=== PATIENT | male | born 1960 | race Caucasian/White ===

== ENCOUNTER 2017-09-20 12:26 | Emergency (ER) | payer OTHER ==
[~2017-09-20] VITALS: Ht 175.3 cm; Wt 105.4 kg
[~2017-09-20 12:26] MED LIST: AMLO5TAB2; ESZO1TAB3; GABA300C5 PO; LISI-515
[2017-09-20 12:37] VITALS: BP 146/67; PULSE 66; RESP 16; TEMP 98.6; O2SAT 96
[2017-09-20] MEDS ORDERED: AMBI5TAB PO (12:52)
[2017-09-20] MEDS ORDERED: LIPI10TA PO (12:52)
[2017-09-20] MEDS ORDERED: BLOOD PRESSURE MED (12:52)
[2017-09-20] MEDS ORDERED: TERA1CAP3 PO (12:52)
[2017-09-20 12:55] LABS: BILIRUBIN, URINE NEG (NEG); BLOOD, URINE TRACE (NEG); GLUCOSE,URINE NEG (NEG); KETONE, URINE NEG (NEG); NITRITE,URINE NEG (NEG); PH, URINE 5.5 (5.0-8.5); URINE COLOR YELLOW (YELLW/STRAW); URINE LEUKOCYTE ESTERASE NEG (NEG)
[2017-09-20 13:03] LABS: RBC, URINE 0-3 /hpf (0-3); SQUAMOUS EPITHELIAL CELL URINE 0-5 /hpf (0-5)
--- NOTE | 2017-09-20 13:04 | PD ---
HPI Chief Complaint: Flank/Kidney Pain Time Seen by Provider: 12:43 Travel History International Travel<30 days: No Contact w/Intl Traveler<30days: No Traveled to known affect area: No History of Present Illness HPI 57yo M with PMH of nephrolithiasis, back surgery with neurostimulator here with c/o back pain radiating to bilateral lower abdomen. Said it is sharp, intermittent and feels like when he last got his kidney stones. Said it started last week but worst in the last 2 days. Said he went to his primary care and got ultrasound of kidney but does not know exactly what it shows, maybe fluid. +Nausea. +Dysuria. +Difficulty urinating. Denies any fever, chest pain, sob, vomiting, testicular pain, penile rash or discharge, fall, focal weakness or numbness. PFSH Past Medical History Arthritis: No Blood Disorders: No (N) Heart Rhythm Problems: No Cancer: No Cardiovascular Problems: Yes (htn on meds) High Cholesterol: Yes Chest Pain: No Congestive Heart Failure: No Cerebrovascular Accident: No Diabetes: No Diminished Hearing: No Diverticulitis: Yes Endocrine: No Gastrointestinal Disorders: Yes (Reflux) GERD: Yes Genitourinary: Yes (Prostatitis) Headaches: No Hepatitis: No Hiatal Hernia: No Hypertension: Yes Immune Disorder: No Kidney Stones: Yes Musculoskeletal: Yes (Chronic back pain ) Neurologic: No Psychiatric: No Reproductive: No Respiratory: No Myocardial Infarction: No Seizures: No Sleep Apnea: Yes Thyroid Disease: No Ulcer: No Tetanus Vaccination: < 5 Years Influenza Vaccination: Yes Past Surgical History Abdominal Surgery: Yes (APPENDECTOMY) AICD: No Appendectomy: Yes Body Medical Devices: Orthopedic hardware, teeth implants Cardiac Surgery: No Ear Surgery: No Endocrine Surgery: No Eye Surgery: No Genitourinary Surgery: No Neurologic Surgery: Yes (LUMBAR LAMINECTOMY WITH FUSION) Oral Surgery: Yes (Teeth implants) Pacemaker: No Thoracic Surgery: No Other Surgery: Yes (Lipomas removed, muscle bx, SPINAL CORE STIMULATOR) Family History Family Hypercholesterolemia: Yes Social History Alcohol Use: No Tobacco Use: No Substance Use: No Allergies-Medications (Allergen,Severity, Reaction): Coded Allergies: oyster extract (Unverified Allergy, Severe, itching, 09/20/17) rosuvastatin (Unverified Allergy, Severe, MUSCLE CRAMPS, 09/20/17) enalaprilat (Unverified Allergy, Intermediate, 09/20/17) metoprolol (Unverified Allergy, Unknown, 09/20/17) valsartan (Unverified Allergy, Unknown, 09/20/17) Reported Meds & Prescriptions Reported Meds & Active Scripts Active Reported [Blood Pressure Med] Ambien (Zolpidem Tartrate) 5 Mg Tab Unknown Dose PO HS PRN Terazosin (Terazosin HCl) 1 Mg Cap Unknown Dose PO HS Lipitor (Atorvastatin Calcium) 10 Mg Tab Unknown Dose PO HS Review of Systems Except as stated in HPI: all other systems reviewed are Neg Physical Exam Narrative GENERAL: 57yo M in mild distress. SKIN: Focused skin assessment warm/dry. HEAD: Atraumatic. Normocephalic. EYES: Pupils equal and round. No scleral icterus. No injection or drainage. ENT: No nasal bleeding or discharge. Mucous membranes pink and moist. NECK: Trachea midline. No JVD. CARDIOVASCULAR: Regular rate and rhythm. No murmur appreciated. RESPIRATORY: No accessory muscle use. Clear to auscultation. Breath sounds equal bilaterally. GASTROINTESTINAL: Abdomen soft, non-tender, nondistended. BACK: Mild lower back ttp bilaterally. +Midline scar but not ttp. No edema. No CVA tenderness bilaterally. MUSCULOSKELETAL: No obvious deformities. No clubbing. No cyanosis. No edema. NEUROLOGICAL: Awake and alert. No obvious cranial nerve deficits. Motor grossly within normal limits. Normal speech. PSYCHIATRIC: Appropriate mood and affect; insight and judgment normal. Data Data Last Documented VS Vital Signs Date Time Temp Pulse Resp B/P (MAP) Pulse Ox O2 Delivery O2 Flow Rate FiO2 09/20/17 12:37 98.6 66 16 146/67 (93) 96 Orders Orders Urinalysis - C+S If Indicated (09/20/17 12:40) Basic Metabolic Panel (Bmp) (09/20/17 13:04) Complete Blood Count With Diff (09/20/17 13:04) Ct Abd/Pel W/O Iv Contrast (09/20/17 13:04) Ketorolac Inj (Toradol Inj) (09/20/17 13:15) Ondansetron Odt (Zofran Odt) (09/20/17 13:15) Labs Laboratory Tests Test 09/20/17 12:50 09/20/17 13:45 Urine Collection Type CLEAN CATCH Urine Color YELLOW Urine Turbidity CLEAR Urine pH 5.5 Urine Specific [place] 1.015 Urine Protein NEG mg/dL Urine Glucose (UA) NEG mg/dL Urine Ketones NEG mg/dL Urine Occult Blood TRACE Urine Nitrite NEG Urine Bilirubin NEG Urine Urobilinogen 0.2 MG/DL Urine Leukocyte Esterase NEG Urine RBC 0-3 /hpf Urine Squamous Epithelial Cells 0-5 /hpf Microscopic Urinalysis Comment CULT NOT INDICATED Urine Collection Time 12:50 White Blood Count 10.1 TH/MM3 Red Blood Count 4.52 MIL/MM3 Hemoglobin 13.7 GM/DL Hematocrit 41.2 % Mean Corpuscular Volume 91.1 FL Mean Corpuscular Hemoglobin 30.3 PG Mean Corpuscular Hemoglobin Concent 33.3 % Red Cell Distribution Width 13.1 % Platelet Count 280 TH/MM3 Mean Platelet Volume 7.0 FL Neutrophils (%) (Auto) 79.6 % Lymphocytes (%) (Auto) 13.7 % Monocytes (%) (Auto) 4.9 % Eosinophils (%) (Auto) 1.3 % Basophils (%) (Auto) 0.5 % Neutrophils # (Auto) 8.0 TH/MM3 Lymphocytes # (Auto) 1.4 TH/MM3 Monocytes # (Auto) 0.5 TH/MM3 Eosinophils # (Auto) 0.1 TH/MM3 Basophils # (Auto) 0.1 TH/MM3 CBC Comment DIFF FINAL Differential Comment Blood Urea Nitrogen 18 MG/DL Creatinine 1.20 MG/DL Random Glucose 122 MG/DL Calcium Level 8.9 MG/DL Sodium Level 139 MEQ/L Potassium Level 4.7 MEQ/L Chloride Level 107 MEQ/L Carbon Dioxide Level 28.2 MEQ/L Anion Gap 4 MEQ/L Estimat Glomerular Filtration Rate 62 ML/MIN [facility] Medical Decision Making Medical Screen Exam Complete: Yes Emergency Medical Condition: Yes Differential Diagnosis Nephrolithiasis vs. pyelonephritis vs. UTI Narrative Course 57yo M with back pain radiating towards abdomen. Labs reviewed, no leukocytosis. H/H normal. BMP unremarkable. UA negative for blood or leukocyte. CT a/p showed mild perinephric stranding in right kidney without stone or obstruction. Left kidney showed moderate perinephric stranding. No obstructing stone. No inflammatory changes in the abdomen. Pt reevaluated at bedside and pain and nausea has resolved after medications. Pt feels better. Pt is well appearing but since he has urinary complaints and perinephric stranding in kidneys, will cover with antibiotics. Return precautions given. Diagnosis Primary Impression: Back pain Qualified Codes: M54.5 - Low back pain Patient Instructions: General Instructions Departure Forms: Tests/Procedures Additional Instructions: Please follow up with your primary care physician in 2-3 days. Return to the ED if symptoms worsen. Med/Other Pt SpecificInfo: Prescription(s) given Scripts Acetaminophen (Tylenol) 325 Mg Tab 650 MG PO Q6H Y for PAIN SCALE 1 TO 4, #20 TAB 0 Refills Prov: Layla Santoyo DO 09/20/17 Ondansetron Odt (Zofran Odt) 4 Mg Tab 4 MG SL Q12HR Y for Nausea/Vomiting, #6 TAB 0 Refills Prov: Layla Santoyo DO 09/20/17 Sulfamethoxazole-Trimethoprim (Bactrim DS) 800-160 Mg Tab 1 TAB PO BID for Infection, #14 TAB 0 Refills Prov: Layla Santoyo DO 09/20/17 Disposition: 01 DISCHARGE HOME Condition: Stable Layla Santoyo DO September 20, 2017 13:04
[2017-09-20] MEDS ORDERED: KETOROLAC TROMETHAMINE 30 MG/ML (IVP) VIAL IVP ONE (13:15)
[2017-09-20] MEDS ORDERED: ONDANSETRON ODT 4 MG TAB PO ONE (13:15)
[2017-09-20 13:58] LABS: BASOPHIL # 0.1 TH/MM3 (0-0.2); BASOPHIL % 0.5 % (0.0-2.0); EOSINOPHIL # 0.1 TH/MM3 (0-0.4); EOSINOPHIL % 1.3 % (0.0-4.0); HEMATOCRIT 41.2 % (39.0-51.0); HEMOGLOBIN 13.7 GM/DL (13.0-17.0); LYMPH % 13.7 % (9.0-44.0); LYMPHOCYTE # 1.4 TH/MM3 (1.0-4.8); MEAN CELL VOLUME 91.1 FL (80.0-100.0); MEAN CORPUSCULAR HEMOGLOBIN 30.3 PG (27.0-34.0); MEAN CORPUSCULAR HGB CONC 33.3 % (32.0-36.0); MONO % 4.9 % (0.0-8.0); MONOCYTE # 0.5 TH/MM3 (0-0.9); NEUT % 79.6 % (16.0-70.0); PLATELET COUNT 280 TH/MM3 (150-450); RED BLOOD COUNT 4.52 MIL/MM3 (4.50-5.90); RED CELL DISTRIBUTION WIDTH 13.1 % (11.6-17.2); WHITE BLOOD COUNT 10.1 TH/MM3 (4.0-11.0)
--- NOTE | 2017-09-20 14:13 | RADRPT ---
EXAM DATE/TIME: 09/20/2017 13:27 [facility] COMPARISON: No previous studies available for comparison. INDICATIONS : Right flank pain with frequent and burning urination radiating to left flank area.. ORAL CONTRAST: No oral contrast ingested. RADIATION DOSE: 23.16 CTDIvol (mGy) MEDICAL HISTORY : Hypertension. Diverticulosis. Renal calculi. SURGICAL HISTORY : Appendectomy. Fusion, lumbar.Neurostimulator. ENCOUNTER: Initial ACUITY: 3 days PAIN SCALE: 4/10 LOCATION: Bilateral flank TECHNIQUE: Volumetric scanning of the abdomen and pelvis was performed. Using automated exposure control and ad justment of the mA and/or kV according to patient size, radiation dose was kept as low as reasonably achievable to obtain optimal diagnostic quality images. DICOM format image data is available electro nically for review and comparison. FINDINGS: The lower lungs are clear. The liver is free of focal defects. Gallbladder unremarkable The spleen, pancreas adrenal glands are unremarkable. Right kidney: Mild perinephric stranding is present without stone or obstruction Left kidney: Moderate perinephric stranding is present. There is a 4.5 cm cyst lower pole. There is no obstructi ng stone. I do not CA calcification along the expected course of the left ureter. Transpedicular fixation is present in the lower lumbar spine. Bladder prostate and single vesicles unremarkable There no inflammatory changes in the abdomen. Spinal stimulator is evident, causing moderate artifact in the pelvis. CONCLUSION: Negative for stone or obstruction. Lack of intravenous contrast exclusion of pyelonephritis difficult. Flakito Orellana MD FACR on September 20, 2017 at 14:06 Board Certified Radiologist. This report was verified electronically.
[2017-09-20 14:25] LABS: CALCIUM 8.9 MG/DL (8.5-10.1)
[2017-09-20 14:26] LABS: BICARBONATE 28.2 MEQ/L (21.0-32.0)
[2017-09-20 14:29] LABS: CREATININE 1.2 MG/DL (0.60-1.30)
[2017-09-20] MEDS ORDERED: TYLE325T PO (15:08)
[2017-09-20] MEDS ORDERED: ZOFR4TAB3 SL (15:08)
[2017-09-20] MEDS ORDERED: BACT800T5 PO (15:08)
[2017-09-20 15:15] VITALS: BP 109/56
== END 2017-09-20 15:26 | disposition home or self-care (01) ==
LOC: PHED 12:26
DX: M54.5 Low back pain (principal); R10.30 Lower abdominal pain, unspecified; R11.0 Nausea; R30.0 Dysuria; I10 Essential (primary) hypertension; E78.00 Pure hypercholesterolemia, unspecified; K21.9 Gastro-esophageal reflux disease without esophagitis; G47.30 Sleep apnea, unspecified; Z87.442 Personal history of urinary calculi
CPT/HCPCS: 74176; 80048; 81001; 85025; 96374; 99284; J1885